=== PATIENT | female | born 1990 | race Caucasian/White ===

== ENCOUNTER 2020-02-29 22:49 | Observation (INO) | payer OTHER ==
[~2020-02-29] VITALS: Ht 167.6 cm; Wt 59.0 kg
== END 2020-03-01 00:43 | disposition home or self-care (01) ==
LOC: ER 22:49 → EOR 22:50
PROVIDERS: ADMIT Emergency Medicine
DX: F23 Brief psychotic disorder (principal); F15.90 Other stimulant use, unspecified, uncomplicated
CPT/HCPCS: 99285; G0378